=== PATIENT | male | born 1950 | race Caucasian/White ===

== ENCOUNTER 2023-04-07 13:51 | Outpatient (RCR) | payer MEDICARE, BC, SELFPAY ==
[2023-04-07 13:59] VITALS: BP 136/78
[2023-04-07] MEDS: NUCALA 1 MG SC (14:12)
== END 2023-04-08 08:30 | disposition home or self-care (01) ==
LOC: OID 13:51
PROVIDERS: ATTENDING PHYSICIAN Internal Medicine Critical Care Medicine; FAMILY PHYSICIAN Family Medicine
DX: J45.50 Severe persistent asthma, uncomplicated (principal)
CPT/HCPCS: 96372; J2182

== ENCOUNTER 2023-05-05 13:46 | Outpatient (RCR) | payer MEDICARE, BC, SELFPAY ==
[2023-05-05] MEDS: NUCALA 1 MG SC (14:13)
[2023-05-05 14:23] VITALS: BP 116/66
== END 2023-05-06 08:37 | disposition home or self-care (01) ==
LOC: OID 13:46
PROVIDERS: ATTENDING PHYSICIAN Internal Medicine Critical Care Medicine; FAMILY PHYSICIAN Family Medicine
DX: J45.40 Moderate persistent asthma, uncomplicated (principal); J44.9 Chronic obstructive pulmonary disease, unspecified; G47.33 Obstructive sleep apnea (adult) (pediatric); Z87.891 Personal history of nicotine dependence
CPT/HCPCS: 96372; J2182

== ENCOUNTER 2023-06-02 13:46 | Outpatient (RCR) | payer MEDICARE, BC, SELFPAY ==
[2023-06-02 13:58] VITALS: BP 111/81
[2023-06-02] MEDS: NUCALA 1 MG SC (14:06)
== END 2023-06-03 11:20 | disposition home or self-care (01) ==
LOC: OID 13:46
PROVIDERS: ATTENDING PHYSICIAN Internal Medicine Critical Care Medicine; FAMILY PHYSICIAN Family Medicine
DX: J45.50 Severe persistent asthma, uncomplicated (principal)
CPT/HCPCS: 96372; J2182

== ENCOUNTER → 2023-06-12 14:24 | Outpatient (REF) | payer MEDICARE, BC, SELFPAY | LOC: RAD 14:24 | PROVIDERS: ATTENDING PHYSICIAN Internal Medicine Critical Care Medicine; FAMILY PHYSICIAN Family Medicine; OTHER PHYSICIAN Surgery; REFERRING PHYSICIAN Internal Medicine Cardiovascular Disease | DX: Z87.891 Personal history of nicotine dependence (principal) | CPT/HCPCS: 71271 ==

== ENCOUNTER → 2023-06-22 12:38 | Outpatient (REF) | payer MEDICARE, BC, SELFPAY | LOC: RAD 12:38 | PROVIDERS: ATTENDING PHYSICIAN Family Medicine | DX: M54.9 Dorsalgia, unspecified (principal) | CPT/HCPCS: 72072 ==

== ENCOUNTER → 2023-06-29 07:20 | Outpatient (REF) | payer MEDICARE, BC, SELFPAY | LOC: MRI 07:20 | PROVIDERS: ATTENDING PHYSICIAN Family Medicine | DX: M54.9 Dorsalgia, unspecified (principal); C67.9 Malignant neoplasm of bladder, unspecified | CPT/HCPCS: 72146 ==

== ENCOUNTER 2023-06-30 13:34 | Outpatient (RCR) | payer MEDICARE, BC, SELFPAY ==
[2023-06-30 13:45] VITALS: BP 102/65
[2023-06-30] MEDS: NUCALA 1 MG SC (14:00)
== END 2023-07-01 09:34 | disposition home or self-care (01) ==
LOC: OID 13:34
PROVIDERS: ATTENDING PHYSICIAN Internal Medicine Critical Care Medicine; FAMILY PHYSICIAN Family Medicine
DX: J45.40 Moderate persistent asthma, uncomplicated (principal); J44.9 Chronic obstructive pulmonary disease, unspecified; G47.33 Obstructive sleep apnea (adult) (pediatric); Z87.891 Personal history of nicotine dependence
CPT/HCPCS: 96372; J2182

== ENCOUNTER → 2023-07-03 11:24 | Outpatient (REF) | payer MEDICARE, BC, SELFPAY | LOC: MRI 3T 11:24 | PROVIDERS: ATTENDING PHYSICIAN Family Medicine | DX: G95.20 Unspecified cord compression (principal) | CPT/HCPCS: 72141 ==

== ENCOUNTER 2023-07-28 13:48 | Outpatient (RCR) | payer MEDICARE, BC, SELFPAY ==
[2023-07-28 13:59] VITALS: BP 104/65
[2023-07-28] MEDS: NUCALA 1 MG SC (14:12)
== END 2023-07-29 09:06 | disposition home or self-care (01) ==
LOC: OID 13:48
PROVIDERS: ATTENDING PHYSICIAN Internal Medicine Critical Care Medicine; FAMILY PHYSICIAN Family Medicine
DX: J45.50 Severe persistent asthma, uncomplicated (principal)
CPT/HCPCS: 96372; J2182

== ENCOUNTER 2023-08-25 13:43 | Outpatient (RCR) | payer MEDICARE, BC, SELFPAY ==
[2023-08-25 13:57] VITALS: BP 106/66
[2023-08-25] MEDS: NUCALA 1 MG SC (14:16)
== END 2023-08-26 11:30 | disposition home or self-care (01) ==
LOC: OID 13:43
PROVIDERS: ATTENDING PHYSICIAN Internal Medicine Critical Care Medicine; FAMILY PHYSICIAN Family Medicine
DX: J45.40 Moderate persistent asthma, uncomplicated (principal); J44.9 Chronic obstructive pulmonary disease, unspecified; G47.33 Obstructive sleep apnea (adult) (pediatric); Z87.891 Personal history of nicotine dependence
CPT/HCPCS: 96372; J2182

== ENCOUNTER 2023-09-22 13:46 | Outpatient (RCR) | payer MEDICARE, BC, SELFPAY ==
[2023-09-22 14:07] VITALS: BP 101/49
[2023-09-22] MEDS: NUCALA 1 MG SC (14:38)
== END 2023-09-23 10:41 | disposition home or self-care (01) ==
LOC: OID 13:46
PROVIDERS: ATTENDING PHYSICIAN Internal Medicine Critical Care Medicine; FAMILY PHYSICIAN Family Medicine
DX: J45.50 Severe persistent asthma, uncomplicated (principal)
CPT/HCPCS: 96372; J2182

== ENCOUNTER 2023-10-20 13:49 | Outpatient (RCR) | payer MEDICARE, BC, SELFPAY ==
[2023-10-20 14:05] VITALS: BP 104/54
[2023-10-20] MEDS: NUCALA 1 MG SC (14:22)
== END 2023-10-21 08:17 | disposition home or self-care (01) ==
LOC: OID 13:49
PROVIDERS: ATTENDING PHYSICIAN Internal Medicine Critical Care Medicine; FAMILY PHYSICIAN Family Medicine
DX: J45.50 Severe persistent asthma, uncomplicated (principal)
CPT/HCPCS: 96372; J2182

== ENCOUNTER 2023-12-16 13:44 | Outpatient (RCR) | payer MEDICARE, BC, SELFPAY ==
[2023-11-17 13:50] VITALS: BP 97/61
[2023-11-17] MEDS: NUCALA 1 MG SC (14:05)
[2023-12-16 13:58] VITALS: BP 106/56
[2023-12-16] MEDS: NUCALA 1 MG SC (14:00)
== END 2023-12-17 09:05 | disposition home or self-care (01) ==
LOC: OID 13:44
PROVIDERS: ATTENDING PHYSICIAN Internal Medicine Critical Care Medicine; FAMILY PHYSICIAN Family Medicine
DX: J45.40 Moderate persistent asthma, uncomplicated (principal); J45.50 Severe persistent asthma, uncomplicated (principal); J44.9 Chronic obstructive pulmonary disease, unspecified; R06.89 Other abnormalities of breathing; G47.33 Obstructive sleep apnea (adult) (pediatric); Z87.891 Personal history of nicotine dependence
CPT/HCPCS: 96372; J2182

== ENCOUNTER → 2024-01-05 15:03 | Outpatient (REF) | payer MEDICARE, BC, SELFPAY | LOC: RAD 15:03 | PROVIDERS: ATTENDING PHYSICIAN Podiatrist; FAMILY PHYSICIAN Family Medicine | DX: M16.0 Bilateral primary osteoarthritis of hip (principal) | CPT/HCPCS: 73523 ==

== ENCOUNTER 2024-01-12 13:41 | Outpatient (RCR) | payer MEDICARE, BC, SELFPAY ==
[2024-01-12 13:45] VITALS: BP 125/65
[2024-01-12] MEDS: NUCALA 1 MG SC (13:59)
== END 2024-01-13 09:54 | disposition home or self-care (01) ==
LOC: OID 13:41
PROVIDERS: ATTENDING PHYSICIAN Internal Medicine Critical Care Medicine; FAMILY PHYSICIAN Family Medicine
DX: J45.50 Severe persistent asthma, uncomplicated (principal); R06.89 Other abnormalities of breathing; J44.9 Chronic obstructive pulmonary disease, unspecified; D72.19 Other eosinophilia; G47.33 Obstructive sleep apnea (adult) (pediatric); Z87.891 Personal history of nicotine dependence
CPT/HCPCS: 96372; J2182

== ENCOUNTER 2024-02-09 11:30 | Outpatient (RCR) | payer MEDICARE, BC, SELFPAY ==
[2024-02-09 11:40] VITALS: BP 111/58
[2024-02-09] MEDS: NUCALA 1 MG SC (11:52)
== END 2024-02-11 08:34 | disposition home or self-care (01) ==
LOC: OID 11:30
PROVIDERS: ATTENDING PHYSICIAN Internal Medicine Critical Care Medicine; FAMILY PHYSICIAN Family Medicine
DX: J45.50 Severe persistent asthma, uncomplicated (principal); R06.89 Other abnormalities of breathing; J44.9 Chronic obstructive pulmonary disease, unspecified; G47.33 Obstructive sleep apnea (adult) (pediatric); Z87.891 Personal history of nicotine dependence
CPT/HCPCS: 96372; J2182

== ENCOUNTER 2024-03-08 13:36 | Outpatient (RCR) | payer MEDICARE, BC, SELFPAY ==
[2024-03-08 14:12] VITALS: BP 133/59
[2024-03-08] MEDS: NUCALA 1 MG SC (14:21)
== END 2024-03-09 09:32 | disposition home or self-care (01) ==
LOC: OID 13:36
PROVIDERS: ATTENDING PHYSICIAN Internal Medicine Critical Care Medicine; FAMILY PHYSICIAN Family Medicine
DX: J45.50 Severe persistent asthma, uncomplicated (principal); R06.89 Other abnormalities of breathing; J44.9 Chronic obstructive pulmonary disease, unspecified; G47.33 Obstructive sleep apnea (adult) (pediatric); Z87.891 Personal history of nicotine dependence
CPT/HCPCS: 96372; J2182

== ENCOUNTER 2024-04-05 13:45 | Outpatient (RCR) | payer MEDICARE, BC, SELFPAY ==
[2024-04-05 13:54] VITALS: BP 124/72
[2024-04-05] MEDS: NUCALA 1 MG SC (14:04)
== END 2024-04-15 23:59 | disposition home or self-care (01) ==
LOC: OID 13:45
PROVIDERS: ATTENDING PHYSICIAN Internal Medicine Critical Care Medicine; FAMILY PHYSICIAN Family Medicine
DX: J45.50 Severe persistent asthma, uncomplicated (principal); R06.89 Other abnormalities of breathing; J44.9 Chronic obstructive pulmonary disease, unspecified; G47.33 Obstructive sleep apnea (adult) (pediatric); Z87.891 Personal history of nicotine dependence
CPT/HCPCS: 96372; J2182

== ENCOUNTER 2024-05-03 13:43 | Outpatient (RCR) | payer MEDICARE, BC, SELFPAY ==
[2024-05-03 13:52] VITALS: BP 94/47
[2024-05-03] MEDS: NUCALA 1 MG SC (14:04)
== END 2024-05-04 10:08 | disposition home or self-care (01) ==
LOC: OID 13:43
PROVIDERS: ATTENDING PHYSICIAN Internal Medicine Critical Care Medicine; FAMILY PHYSICIAN Family Medicine
DX: J45.50 Severe persistent asthma, uncomplicated (principal); R06.89 Other abnormalities of breathing; J44.9 Chronic obstructive pulmonary disease, unspecified; G47.33 Obstructive sleep apnea (adult) (pediatric); Z87.891 Personal history of nicotine dependence
CPT/HCPCS: 96372; J2182

== ENCOUNTER 2024-05-31 13:48 | Outpatient (RCR) | payer MEDICARE, BC, SELFPAY ==
[2024-05-31 13:59] VITALS: BP 104/59
[2024-05-31] MEDS: NUCALA 1 MG SC (14:15)
== END 2024-06-01 08:57 | disposition home or self-care (01) ==
LOC: OID 13:48
PROVIDERS: ATTENDING PHYSICIAN Internal Medicine Critical Care Medicine; FAMILY PHYSICIAN Family Medicine
DX: J45.50 Severe persistent asthma, uncomplicated (principal); R06.89 Other abnormalities of breathing; J44.9 Chronic obstructive pulmonary disease, unspecified; G47.33 Obstructive sleep apnea (adult) (pediatric); Z87.891 Personal history of nicotine dependence
CPT/HCPCS: 96372; J2182

== ENCOUNTER → 2024-06-23 13:40 | Outpatient (REF) | payer MEDICARE, BC, SELFPAY | LOC: RAD 13:40 | PROVIDERS: ATTENDING PHYSICIAN Surgery; FAMILY PHYSICIAN Family Medicine | DX: C67.0 Malignant neoplasm of trigone of bladder (principal) | CPT/HCPCS: 74178; Q9967 ==

== ENCOUNTER 2024-06-28 13:58 | Outpatient (RCR) | payer MEDICARE, BC, SELFPAY ==
[2024-06-28 14:06] VITALS: BP 97/65
[2024-06-28] MEDS: NUCALA 1 MG SC (14:16)
== END 2024-06-29 09:22 | disposition home or self-care (01) ==
LOC: OID 13:58
PROVIDERS: ATTENDING PHYSICIAN Internal Medicine Critical Care Medicine; FAMILY PHYSICIAN Family Medicine
DX: J45.50 Severe persistent asthma, uncomplicated (principal); R06.89 Other abnormalities of breathing; J44.9 Chronic obstructive pulmonary disease, unspecified; G47.33 Obstructive sleep apnea (adult) (pediatric); Z87.891 Personal history of nicotine dependence
CPT/HCPCS: 96372; J2182

== ENCOUNTER 2024-07-26 13:52 | Outpatient (RCR) | payer MEDICARE, BC, SELFPAY ==
[2024-07-26 14:01] VITALS: BP 105/60
[2024-07-26] MEDS: NUCALA 1 MG SC (14:21)
== END 2024-07-27 09:44 | disposition home or self-care (01) ==
LOC: OID 13:52
PROVIDERS: ATTENDING PHYSICIAN Internal Medicine Critical Care Medicine; FAMILY PHYSICIAN Family Medicine
DX: J45.50 Severe persistent asthma, uncomplicated (principal); R06.89 Other abnormalities of breathing; J44.9 Chronic obstructive pulmonary disease, unspecified; G47.33 Obstructive sleep apnea (adult) (pediatric); Z87.891 Personal history of nicotine dependence
CPT/HCPCS: 96372; J2182

== ENCOUNTER 2024-08-23 13:46 | Outpatient (RCR) | payer MEDICARE, BC, SELFPAY ==
[2024-08-23 13:55] VITALS: BP 94/61
[2024-08-23] MEDS: NUCALA 1 MG SC (14:25)
== END 2024-08-24 09:56 | disposition home or self-care (01) ==
LOC: OID 13:46
PROVIDERS: ATTENDING PHYSICIAN Internal Medicine Critical Care Medicine; FAMILY PHYSICIAN Family Medicine
DX: J45.50 Severe persistent asthma, uncomplicated (principal); R06.89 Other abnormalities of breathing; J44.9 Chronic obstructive pulmonary disease, unspecified; G47.33 Obstructive sleep apnea (adult) (pediatric); Z87.891 Personal history of nicotine dependence
CPT/HCPCS: 96372; J2182

== ENCOUNTER 2024-09-20 13:50 | Outpatient (RCR) | payer MEDICARE, BC, SELFPAY ==
[2024-09-20 13:56] VITALS: BP 108/55
[2024-09-20] MEDS: NUCALA 1 MG SC (14:14)
== END 2024-09-21 08:17 | disposition home or self-care (01) ==
LOC: OID 13:50
PROVIDERS: ATTENDING PHYSICIAN Internal Medicine Critical Care Medicine; FAMILY PHYSICIAN Family Medicine
DX: J45.50 Severe persistent asthma, uncomplicated (principal); R06.89 Other abnormalities of breathing; J44.9 Chronic obstructive pulmonary disease, unspecified; G47.33 Obstructive sleep apnea (adult) (pediatric); Z87.891 Personal history of nicotine dependence
CPT/HCPCS: 96372; J2182

== ENCOUNTER → 2024-10-03 13:37 | Outpatient (REF) | payer MEDICARE, BC, SELFPAY | LOC: RCS 13:37 | PROVIDERS: ATTENDING PHYSICIAN Internal Medicine Cardiovascular Disease; FAMILY PHYSICIAN Family Medicine | DX: I48.0 Paroxysmal atrial fibrillation (principal); I50.32 Chronic diastolic (congestive) heart failure | CPT/HCPCS: 93306 ==

== ENCOUNTER 2024-11-08 06:24 | Day surgery (SDC) | payer MEDICARE, BC, SELFPAY | END 2024-11-08 15:15 | disposition home or self-care (01) | LOC: GI 06:24 | PROVIDERS: ATTENDING PHYSICIAN Internal Medicine Gastroenterology | DX: Z12.11 Encounter for screening for malignant neoplasm of colon (principal); D12.2 Benign neoplasm of ascending colon; D12.3 Benign neoplasm of transverse colon; D12.4 Benign neoplasm of descending colon; K63.5 Polyp of colon; K57.30 Diverticulosis of large intestine without perforation or abscess without bleeding; K62.1 Rectal polyp; R19.5 Other fecal abnormalities | CPT/HCPCS: 45385; 45380; 88305 ==

== ENCOUNTER 2024-11-08 21:16 | Inpatient (IN) | payer MEDICARE, BC, SELFPAY ==
[2024-11-08] VITALS (9 sets, daily range): BP systolic 90–136; BP diastolic 52–113; BMI 39.3
--- NOTE | 2024-11-08 15:47 | ED.GENMED ---
History of Present Illness
General
Chief Complaint: Heart Rate Problem
Source: patient and other (GI nurse [place])
Exam Limitations: none
Time Seen by Provider: 11/08/24 15:31
Nursing documentation reviewed up to this point in time: agreed with
History of Present Illness
History of Present Illness:
74-year-old male with history of COPD, A-fib on Eliquis, HTN, HLD, bladder cancer (had cystoscopy 4 days ago and 'clear'), presents from GI lab for rapid HR afib which started 30 minutes after his completed procedure. He presents 'a little tired,'
denies CP, SOB, abd pain, n/v. at bedside states his last Eliquis was 11/05 and he was told to resume it on 25 p.m.
Past History
Past History
ED Past Medical History: Arrthythmia (Atrial fib), Cancer (Lymphoma, Bladder Ca), COPD, HTN, Hypercholesterolemia and Other (PNA, sleep apnea)
ED Past Surgical History: Other (right Carotid endarterectomy, Stent Right lower leg)
Social History
Tobacco: Former smoker
Alcohol: Occasional
Drug: None
Personal: Single
Living: alone
Review of Systems
Review of Systems
Allergies reviewed?: Yes
All Other Systems: ROS reviewed and negative except as documented in HPI and ROS
Respiratory: Denies trouble breathing
Cardiac: Denies chest pain
ABD/GI: Denies abdominal pain or nausea
Neurological: Denies dizzy, weakness or numbness
Phy Exam
Physical Exam
Physical Exam:
GENERAL: No acute distress. A&Ox3.
CONSTITUTIONAL: Afebrile.
EYES: clear, conjunctivae normal
ENMT: moist mucus membranes, Pharynx nl
RESPIRATORY: Regular respirations, nonlabored, lungs clear.
CARDIOVASCULAR: Irregular rate, HR 130s to 150s A-fib on bedside monitor, no murmurs, no rubs.
GI: Soft, obese, nontender, normal BS
MUSCULOSKELETAL: Moves with ease. Well perfused. No edema
SKIN: Warm, dry, pink
PSYCH: Normal mood and affect. Well kept, interactive and appropriate
NEUROLOGIC: Awake, alert and oriented. No focal neurological deficits
Course
Orders/Labs/Results
Orders:
Orders
11/08/24 15:35
Diltiazem 125 mg/125 ml Nss [Cardizem] 125 mg in 125 ml IV NOW
Initial dose in mg/hr, then titrate:: 5
Titrate to keep:: Heart rate 80-100 bpm
Titrate by mg/hr:: 5 mg/hr
Frequency of titrations (minutes):: 15
Maximum dose in mg/hr:: 15
Diltiazem HCl [Cardizem] 10 mg IV NOW STA
11/08/24 15:48
Comprehensive Metabolic Panel Urgent
Magnesium Urgent
11/08/24 15:49
Complete Blood Count/With Diff Urgent
TSH Urgent
11/08/24 16:36
ECG [Electrocardiogram (*1)] Urgent
Reason for Study: Atrial Fibrillation
EKG- Treatment ONCE
11/08/24 18:33
ECG [Electrocardiogram (*1)] Urgent
Reason for Study: Atrial Fibrillation
EKG- Treatment ONCE
11/08/24 18:53
0.9% Sodium Chloride 1000 ml [Nss] 1,000 ml IV BOLUS
Diltiazem 125 mg/125 ml Nss [Cardizem] 125 mg in 125 ml IV NOW
Initial dose in mg/hr, then titrate:: 5
Titrate to keep:: Heart rate 80-100 bpm
Titrate by mg/hr:: 5 mg/hr
Frequency of titrations (minutes):: 15
Maximum dose in mg/hr:: 15
11/08/24 21:04
Admit/Transfer Patient As Directed
Co-Sign Provider:
Level of Care: Inpatient admission
Assign to:: IMU- Intermediate Care
Physician / Group: curtis encinas
Diagnosis: afib with rvr post polypectomy
Reason for Hospitalization: afib with rvr post polypectomy
Expected length of stay greater than two midnights?: Yes
ELOS- Estimated Length of Stay in days: 3
I certify the patient meets the requirements for IP care: Yes
Code Status As Directed
Resuscitation Status: Full Code
Dofetilide [Tikosyn] 125 mcg PO ONCE ONE
11/08/24 21:09
PRN Pain Medication Management As Directed
May give lesser potent ordered pain med per pt: Yes
preference::
Protocol:: Medication orders for pain may be administered in a
manner that supports deferring to patient preference
when the pt is:
- Requesting an ordered lesser potent pain medication.
Least to most potent pain medications are defined
as: acetaminophen < NSAID < tramadol < opioids
(morphine, oxycodone, hydromorphone).
- Requesting a lesser dose of the same medication IF
ORDERED.
- Requesting a less intrusive route of administration
if both routes are prescribed by the provider (PO <
IV).
Abnormal Lab Results
11/08/24 11/08/24
15:48 15:49
Absolute Neuts (auto) 7.3 H 10^3/uL
(1.4-6.5)
Absolute Lymphs (auto) 1.0 L 10^3/uL
(1.2-3.4)
Absolute Monos (auto) 1.4 H 10^3/uL
(0.1-0.6)
Lymphocytes % 10.0 L %
(20.5-51.1)
Monocytes % 14.3 H %
(1.7-9.3)
Sodium 133 L mmol/L
(135-145)
BUN 21 H mg/dl
(-)
11/08/24 15:49
11/08/24 15:48
Vital Signs
Initial and Last Documented VS:
Initial Vital Signs
Temp Pulse Resp BP Pulse Ox
98.8 F 150 18 93/81 95
11/08/24 15:33 11/08/24 15:33 11/08/24 15:33 11/08/24 15:33 11/08/24 15:33
Last Documented Vital Signs
Temp Pulse Resp BP Pulse Ox
98.8 F 143 18 103/74 97
11/08/24 15:33 11/08/24 18:35 11/08/24 18:35 11/08/24 18:35 11/08/24 18:35
MDM/Problems Addressed
Differential Diagnosis Includes:
A-fib with RVR
MDM/Problems Addressed:
74-year-old male with history of COPD, A-fib on Eliquis, HTN, HLD, bladder cancer (had cystoscopy 4 days ago and 'clear'), presents from GI lab for rapid HR afib which started 30 minutes after his completed procedure. He presents 'a little tired,'
denies CP, SOB, abd pain, n/v. at bedside states his last Eliquis was 11/05 and he was told to resume it on 25 p.m.
3:45 p.m.
Bedside monitor showing HR 80's Repeat EKG: Afib rate 92, monitor showing frequent episodes of sinus beats.
BP soft, Will hold off on Cardizem for now
4:00 PM:
Heart rate on monitor is normal sinus rate of 95
5:15 p.m.
HR remains 92, sinus. EKG: Sinus rhythm w PACs.
Pt feeling well
OOB and ambulated to BR and back independently
Consulted cardiology Dr. Martínez who states starting Eliquis is up to GI
Consulted GI Dr. Vieira about restarting the Eliquis, she is contacting Dr. Chapman and will get back to me.
6:30 PM:
Patient has been resting in normal sinus and just suddenly developed an increased heart rate with A-fib RVR of 140s to 150s.
Plan: IVFs, Cardizem drip, no bolus as BP is still soft.
Admit
Haven't heard back from GI
7:10 p.m.
Hospitalist notified of admission
GI did get back finally and notified of admission.
*Pulse Oximetry
SaO2: 95
Oxygen Mode of Delivery: Room air
Patient hypoxic: no
*Critical Care Note
Total Time (30-74mins, 75-104mins- exclusive of procedures): Not Applicable
ED Attending Note
-
Portions of this chart may have been created with voice recognition software.� Occasional wrong word or��sound alike� substitutions may have occurred due to the inherent limitations of voice recognition software.
Discharge Plan
Departure
Patient Disposition: Admit
Date of Disposition: 11/08/24
Time of Disposition: 19:05
Admit to: Telemetry
Presentation/result/management discussed w/ accepting MD/DO: Hospitalist
Condition: Fair
Discharge Problem:
Atrial fibrillation with rapid ventricular response
Interventions
Interventions:
*Risk Screen - Suicide Last Done: 11/08/24 15:33
*General Assessment Last Done: 11/08/24 15:33
*Neglect/Abuse Screening Last Done: 11/08/24 15:33
*ED- Fall Risk Assessment Last Done: 11/08/24 15:33
ED- Cardiac Assessment Last Done: 11/08/24 15:33
ED- Pulmonary Assessment Last Done: 11/08/24 15:33
[2024-11-08 16:07] LABS: Hematocrit 49.5 % (39.0-52.0); Hemoglobin 16.7 g/dL (13.0-18.0); Mean Corp Hgb Conc. 33.7 g/dL (33.0-37.0); Mean Corpuscular Volume 91.5 fL (80.0-94.0); Nucleated Red Blood Cells % 0 % (-); Platelet Count 221 10^3/uL (130-400); Red Cell Dist. Width 13.6 % (11.5-14.5)
[2024-11-08 16:22] LABS: ALT (SGPT) 22 U/L (0-50); AST (SGOT) 28 U/L (17-59); Albumin 3.9 g/dl (3.5-5.0); Alkaline Phosphatase 51 U/L (38-126); Blood Urea Nitrogen 21 mg/dl (9-20); Calcium 8.4 mg/dl (8.4-10.2); Carbon Dioxide 26 mmol/L (22-30); Chloride 100 mmol/L (98-107); Estimated Creatinine Clearance 62 ml/min; Glucose 92 mg/dl (70-99); Magnesium 2.1 mg/dl (1.6-2.3); Potassium 3.7 mmol/L (3.5-5.1); Sodium 133 mmol/L (135-145); Total Protein 6.3 g/dl (6.3-8.2); eGFR > 60.00
[2024-11-08] MEDS: NSS 1000 IV ×2 (19:00→23:55)
[2024-11-08] MEDS: CARDIZEM 125 IV (19:02)
--- NOTE | 2024-11-08 20:27 | HPS.HSE ---
Addendum entered and electronically signed by Bebo Nelson DO 11/08/24 21:30:
Patient seen and examined independently. Agree with findings and plan as set forth by MAX Curtis.
Patient is a 74y M with PMH significant for paroxysmal atrial fibrillation, ASCVD and COPD who presents to ED for evaluation of tachycardia. Patient presented for colonoscopy today. He had 14 polyps removed during that procedure.
Post-procedure patient was noted to be in rapid A-Fib and was sent to the ED for further evaluation.
In the ED, patient is on IV Cardizem with persistent tachycardia. He denies any chest pain or palpitations. He denies SOB, fevers / chills, etc.
He had a BM here in the ED with some BRB.
Ass:
Paroxysmal Atrial Fibrillation with Rapid Ventricular Response
ASCVD
Colonoscopy / Polypectomy
Post-polypectomy Bleeding
Benign Hypertension
Chronic HFpEF
COPD
BPH
Plan:
Admit for further evaluation and treatment.
Continue Tikosyn including PM dose now.
IV Cardizem and titrate as needed for rate control.
Remain off of anticoagulation for now s/p multiple polypectomies and some (expected) post-polypectomy bleeding in the ED.
Cardiology evaluation for additional recommendations.
Follow for further bleeding. Follow H&H for changes.
Continue usual inhaled medications.
Original Note:
Family Physician
-
Family Physician: Lola Caceres
Chief Complaint
-
A-fib post polypectomy
History of Present Illness
74-year-old male status post colonoscopy today with resection of polyp in the sigmoid, descending colon, transverse colon, ascending colon, cecum, rectum who developed rapid A-fib with RVR patient denies headache, fever, chills, sore throat, chest
pain, palpitations, cough, shortness breath, abdominal pain, nausea, vomiting, urinary symptoms. He has past medical history of A-fib, HTN, HLD, CHF, carotid stenosis status post right CEA 2013, lymphoma right lower extremity, stent right lower
extremity, COPD, former smoker, sleep apnea not tolerant with CPAP, bladder CA, spinal stenosis, arthritis unknown type, [place].
Medical History
Past Medical History
Past Medical History: Reports Other
Additional Past Medical History:
A-fib
HTN
HLD
carotid stenosis status post right CEA 2013
lymphoma right lower extremity,
COPD
former smoker
sleep apnea not tolerant with CPAP
bladder CA
spinal stenosi
arthritis unknown type
[place].
Past Surgical History: Reports Other
Additional Past Surgical History:
stent right lower extremity
carotid stenosis status post right CEA 2013
Social History
Tobacco: Former Smoker
Alcohol: None
Drug: None
Personal:
Employment: Retired
Family History
Family History: Not pertinent
Allergies / Home Medications
Allergies reflects when Allergies were last updated in [facility].
Home Medications with original date entered in [facility]
Allergy/Medication List:
Allergies
Allergy/AdvReac Type Severity Reaction Status Date / Time
cucumber Allergy Swelling Verified 11/08/24 15:55
pollen extracts Allergy hayfever Verified 11/08/24 15:55
Home Medications
umeclidinium 62.5 mcg/actuation blister powder for inhalation (Incruse Ellipta) 1 puff inhalation R DAILY Lung/breathing issues 08/20/20
apixaban 5 mg tablet (Eliquis) 5 mg PO BID 30 days #60 tabs 08/25/20
Held on 06/13/22. Instructions: Resume on 06/20/22. hold until further notice
furosemide 40 mg tablet 40 mg PO DAILY 30 days #30 tabs 08/25/20
empagliflozin 10 mg tablet (Jardiance) 10 mg PO DAILY 10/29/21
sacubitril 24 mg-valsartan 26 mg tablet (Entresto) 1 tab PO BID 02/05/22
dofetilide 125 mcg capsule 125 mcg PO Q12 Arrhythmia #60 caps 02/06/22
diltiazem HCl 120 mg capsule,extended release 24 hr 120 mg PO DAILY Arrhythmia 03/31/22
rosuvastatin 10 mg tablet 10 mg PO DAILY 05/26/22
fluticasone furoate 200 mcg-vilanterol 25 mcg/dose inhalation powder (Breo Ellipta) 1 inh inhalation Q24H 06/06/22
tamsulosin 0.4 mg capsule 0.4 mg PO HS 06/06/22
Review of Systems
-
History Source: Patient
A 12 point ROS was completed and negative except as noted: Yes
Constitutional: Denies Fever or Chills
EENT: Denies Tearing or Runny Nose
Respiratory: Denies Cough or Trouble Breathing
Cardiac: Denies Chest Pain, Diaphoresis, Palpitations or Syncope
Abdomen/GI: Denies Abdominal Pain, Nausea, Vomiting, Diarrhea, Constipated, Bloody Stools or Black Stools
: Denies Dysuria, Frequency, Flank Pain, Incontinence or Difficulty Voiding
Musculoskeletal: Denies Joint Pain or Edema
Skin: Denies Itching or Rash
Neurological: Denies Dizzy, Headache or Weakness
Endocrine: Reports No Symptoms
Hematologic/Lymphatic: Reports No Symptoms
Psych: Reports Calm
Physical Exam
Vital Signs
Vital Signs
Temp Pulse Resp BP Pulse Ox
98.8 F 143 18 103/74 97
11/08/24 15:33 11/08/24 18:35 11/08/24 18:35 11/08/24 18:35 11/08/24 18:35
Physical Exam
General: Comfortable and Conversant; No Pain, Fever or Chills
HEENT: NormoCephalic, Anicteric, PERRLA, [place] Conjunctivae and No Ptosis
Respiratory: Clear; No Wheezes, Rales or Rhonchi
Cardiac: S1/S2 and Irregular Rhythm (A-fib with RVR 136 bpm); No Murmur, Rub, Gallop or Peripheral Edema
Breast: Deferred by me
GI: Soft, Non Tender, Non Distended, Normal Bowel Sounds and No Hepatosplenomegaly
Rectal: Deferred by Provider
Genito-urinary: Deferred by me
Musculoskeletal: No Clubbing, No Cyanosis and No Edema
Skin: Warm and Dry; No Rash
Neuro: AO x 3, No Motor Deficits, Nonfocal/grossly intact, Cranial Nerves Intact and No Sensory Deficits; No Slurred Speech, Facial Droop, Tremors or Sedated
Psych: Calm
Laboratory Results
-
11/08/24 15:49
11/08/24 15:48
Laboratory Results
Total Bilirubin 1.3 mg/dl (0.2-1.3) 11/08/24 15:48
AST 28 U/L (17-59) 11/08/24 15:48
ALT 22 U/L (0-50) 11/08/24 15:48
Alkaline Phosphatase 51 U/L (38-126) 11/08/24 15:48
Data Reviewed
-
Lab Data: Labs Reviewed by me
Impression/Plan
-
Impression/plan:
Admit to IMU
#A-fib with RVR/A-fib
- Heart rate 143
- IV Cardizem drip
Patient may restart Eliquis on 11/11/2024 per GI note
- IV NSS 80 cc an hour
-Consult [facility] cardiology
-Will give patient's Tikosyn 125 mcg p.o. now then take as an 125 mcg twice daily for home meds
EKG in a.m.
2D echo 10/03/2024: EF 55 to 60%, normal LVS LVSF, no wall abnormalities, RVS RV SF within normal limits, no valvular disease
#Status post colonoscopy today 11/08/2024 with multiple polypectomies of the sigmoid, descending, transverse, ascending, cecum, rectum
Hold Eliquis x 2 days will hold IV heparin patient with some postop bleeding
Will monitor CBC in a.m.
#HTN
BP 103/74
Patient on IV diltiazem
#Chronic diastolic CHF compensated
Hold Entresto, Lasix
2D echo 10/03/2024: EF 55 to 60%, normal LVS LVSF, no wall abnormalities, RVS RV SF within normal limits, no valvular disease
#HLD
- Continue Crestor 10 mg daily
#Carotid stenosis status post right CEA 2013
#Lymphoma right lower extremity
Stent right lower extremity
#COPD
#Former smoker
- Continue Incruse Ellipta, Breo Ellipta
#Sleep apnea not tolerant with CPAP
#BPH
Hold Flomax 0.4 mg at bedtime due to hypotension
Other PMH:
Bladder CA
Spinal stenosis
Arthritis unknown type
[place]
DVT prophylaxis
SCDs as Eliquis is currently on hold
Full code
[2024-11-08 21:25] LABS: TSH 0.94 uIU/ml (0.47-4.68)
[2024-11-08] MEDS: TIKOSYN 125 MCG PO (22:00)
[2024-11-09] VITALS (15 sets, daily range): BP systolic 88–131; BP diastolic 59–87; BMI 39.0; BMI 38.9
--- NOTE | 2024-11-09 00:58 | PTCARENOTE ---
received patient from ED. Patient AAOx3. On RA, SPo2 94%. HR in 120s, Cardizem gtt infusing at 10. Patient's bp soft. assessment and vital signs as charted. call fofana in reach.
--- NOTE | 2024-11-09 07:40 | CON.CAR ---
Addendum entered and electronically signed by Abiel Hinson DO 11/09/24 17:50:
I saw and examined the patient 11/09/2024 at 08:30
[employer]'s note was reviewed and I agree with the note.
Comment:
Plan:
Currently in sinus
Cont Cardizem and Tikosyn
Resume anticoagulation once ok with GI
Recent echo with preserved EF
Cont current regimen for GDMT
Compensated cv status
Original Note:
Consultation
Consultation Request
Date/Time Consultation Requested: 11/08/24 at 2259
Date/Time Consultation Performed: 11/09/24 at 0748
Requesting Provider: Dr. Timmons
Performing Provider: Dr. Hinson
Reason for Consultation: Afib with RVR
Medical History
-
History of Present Illness:
Patient came to the hospital with rapid A-fib after colonoscopy yesterday and cardiology is now consulted. Patient previously completed Cologuard screenings, but had his first ever colonoscopy yesterday and was found to have 14 polyps that were
resected. Telemetry strip prior to colonoscopy reviewed by me and patient appeared to be in SR and postprocedure was in A-fib with RVR. Patient denies palpitations and is generally asymptomatic with his A-fib. Patient was sent to the ER and was
in and out of A-fib with RVR, but asymptomatic throughout. Patient was admitted and started on Cardizem drip when he had an episode of A-fib that was more persistent than the 150s. Patient denies chest pain or SOB. He denies palpitations or
lightheadedness. He remembers that he forgot to take his morning doses of Tikosyn and Eliquis this past Thursday.
PMH:
Paroxysmal A-fib/tach
s/p colonoscopy with polypectomy x 14 on 11/08/2024
Chronic Eliquis OAC, last dose 11/05/24
GI cleared patient to resume Eliquis on 11/10/2024
Chronic Tikosyn therapy since 01/2022
Chronic HFpEF
COPD/asthma on Nucala
Right CEA, 2013, [facility]
History of tobacco use
Former severe ETOH use disorder, sober since 2013
Obstructive sleep apnea with CPAP noncompliance
Hypertension
Hypercholesterolemia
Obesity
s/p TURBT for bladder CA 06/12/22
Past Medical History
Past Medical History: Other (in HPI)
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
Social History
Tobacco: Former Smoker
Alcohol: None
Drug: None
Personal: Single
Living: Alone
Family History
Family History: Cancer (father with leukemia)
Allergies / Home Medications
Allergy/AdvReac Type Severity Reaction Status Date / Time
cucumber Allergy Swelling Verified 11/08/24 15:55
pollen extracts Allergy hayfever Verified 11/08/24 15:55
�Medication �Instructions �Recorded �Confirmed �Type
umeclidinium 62.5 mcg/actuation 1 puff inhalation R DAILY 08/20/20 11/08/24 History
blister powder for inhalation Lung/breathing issues
(Incruse Ellipta)
apixaban 5 mg tablet (Eliquis) 5 mg PO BID 30 days #60 tabs 08/25/20 11/08/24 Rx
Held on 06/13/22.
Instructions: Resume on
06/20/22. hold until further
notice
furosemide 40 mg tablet 40 mg PO DAILY 30 days #30 tabs 08/25/20 11/08/24 Rx
empagliflozin 10 mg tablet 10 mg PO DAILY 10/29/21 11/08/24 History
(Jardiance)
sacubitril 24 mg-valsartan 26 mg 1 tab PO BID 02/05/22 11/08/24 History
tablet (Entresto)
dofetilide 125 mcg capsule 125 mcg PO Q12 Arrhythmia #60 caps 02/06/22 11/08/24 Rx
diltiazem HCl 120 mg 120 mg PO DAILY Arrhythmia 03/31/22 11/08/24 History
capsule,extended release 24 hr
rosuvastatin 10 mg tablet 10 mg PO DAILY 05/26/22 11/08/24 History
fluticasone furoate 200 1 inh inhalation Q24H 06/06/22 11/08/24 History
mcg-vilanterol 25 mcg/dose
inhalation powder (Breo Ellipta)
tamsulosin 0.4 mg capsule 0.4 mg PO HS 06/06/22 11/08/24 History
Review of Systems
-
History Source: Patient
All other systems: Negative unless noted
Physical Exam
Vital Signs
Temp Pulse Resp BP Pulse Ox
97.5 F 93 21 131/87 95
11/09/24 03:23 11/09/24 05:00 11/09/24 05:00 11/09/24 04:00 11/09/24 00:44
GEN: NAD. AAO x3
HEENT: EOMI, MMM
LUNGS: RA. CTA B/L, no wheeze
CV: SR on tele initially then Afib with RVR and then back to SR all during consult in room. Reg, S1/S2, no murmur
ABD: soft, BS+, NT, ND
EXT: No cyanosis, clubbing. Trace edema of B/L LE
NEURO: Gross non-focal
SKIN: Warm, pink, dry. No rash
Lab Results
Labs pending for 11/09/2024, the labs from 11/08/2024 reviewed by me and are listed as follows:
CBC 11/08/2024 Hgb 16.7 WBC 9.8, platelet count 221,000
CMP 11/08/2024: Sodium 133, potassium 3.7, BUN 21, creatinine 1.2
Impression / Plan
-
PCP: Dr. Sagastume
Cardiology: Dr. Johnson
Impression:
Admitted with A-fib with RVR following colonoscopy 11/08/2024
Paroxysmal A-fib/tach with RVR
s/p colonoscopy with polypectomy x 14 on 11/08/2024
Chronic Eliquis OAC, last dose 11/05/24
GI cleared patient to resume Eliquis on 11/10/2024
Chronic Tikosyn therapy since 01/2022
Chronic HFpEF
COPD/asthma on Nucala
Right CEA, 2013, [facility]
History of tobacco use
Former severe ETOH use disorder, sober since 2013
Obstructive sleep apnea with CPAP noncompliance
Hypertension
Hypercholesterolemia
Obesity
s/p TURBT for bladder CA 06/12/22
Echo 08/21/20: EF 50%, normal RV size and function
Echo 09/11/21: EF 50-55%, mild LVH, mildly dilated aortic root 4.2 cm at the sinuses of Valsalva; 3.8 cm at the sinotubular junction and 4.1 cm in the ascending aorta. The aortic arch is normal in caliber.�
Echo 10/03/2024: EF 55 to 60%, no significant valve disease, normal RV size and function
Plan:
-Patient came to the hospital with rapid A-fib after colonoscopy yesterday and cardiology is now consulted. Patient previously completed Cologuard screenings, but had his first ever colonoscopy yesterday and was found to have 14 polyps that were
resected. Telemetry strip prior to colonoscopy reviewed by me and patient appeared to be in SR and postprocedure was in A-fib with RVR. Patient denies palpitations and is generally asymptomatic with his A-fib. Patient was sent to the ER and was
in and out of A-fib with RVR, but asymptomatic throughout. Patient was admitted and started on Cardizem drip when he had an episode of A-fib that was more persistent than the 150s. Patient denies chest pain or SOB. He denies palpitations or
lightheadedness. He remembers that he forgot to take his morning doses of Tikosyn and Eliquis this past Thursday.
-ECG x 2 reviewed by me, initial ECG in the ER is A-fib with RVR and ECG later is SR with PACs. Telemetry reviewed by me was SR when I entered the patient's room and then he went into A-fib with RVR and in less than 15 seconds was back in SR.
-Patient with paroxysmal A-fib, he is asymptomatic and paroxysms of A-fib are brief and generally less than 1 minute.
-Outpatient dose of Eliquis 5 mg BID (age 74, Cre 1.2) has been on hold since 11/05/2024, but GI has cleared the patient to resume on 11/10/2024 following 14 polypectomies on 11/08/2024.
-QTc 469 ms NSR as reviewed by me
-Outpatient dose of Tikosyn 125 mcg every 12 hours has been continued and the patient should continue this at home as well
-Cardizem gtt started and stopped this admission. Outpatient dose of Cardizem CD 120 mg daily ordered by me 11/09/2024 and should be continued upon discharge to home
-Await labs from 11/09/2024, potassium was 3.7 on 11/08/2024, the patient is not eating and drinking normally. Recommend potassium greater than 4.0.
-Echo from 10/03/2024 is reviewed and summarized above by me. EF was 55 to 60%.
-Patient with chronic HFpEF and does not appear to be volume overloaded at this time. He should continue with his usual dose of Lasix 40 mg daily.
-Outpatient dose of Entresto 24/26 mg BID should also be continued
-Outpatient dose of Jardiance 10 mg daily was changed to Farxiga for formulary reasons, but Jardiance should be resumed upon discharge to home
-Will arrange for cardiology follow-up
[2024-11-09] MEDS: SYMBICORT 160/4.5 MCG INHALER 2 PUFF INH (07:55)
[2024-11-09] MEDS: SPIRIVA RESPIMAT 2.5 MCG 2 PUFF INH (07:55)
--- NOTE | 2024-11-09 08:00 | PTCARENOTE ---
received patient at change shift from previous RN. Pt resting comfortably in bed AAOX3. denies pain. SR on telemetry heart rate in 80s. pulses palpable. trace lower extremity edema. pt on room air, lung sounds diminished. active bowel sounds, ate
100% on breakfast. voiding in urinal. pt updated on plan of care, see worklist for full nursing assessment and interventions.
[2024-11-09] MEDS: FARXIGA 10 MG PO (08:15)
[2024-11-09] MEDS: TIKOSYN 125 MCG PO (08:16)
[2024-11-09] MEDS: CRESTOR 10 MG PO (08:16)
[2024-11-09 09:25] LABS: Hematocrit 46.7 % (39.0-52.0); Hemoglobin 15.7 g/dL (13.0-18.0); Mean Corp Hgb Conc. 33.6 g/dL (33.0-37.0); Mean Corpuscular Volume 89.8 fL (80.0-94.0); Nucleated Red Blood Cells % 0 % (-); Platelet Count 198 10^3/uL (130-400); Red Cell Dist. Width 13.7 % (11.5-14.5)
[2024-11-09 10:17] LABS: ALT (SGPT) 19 U/L (0-50); AST (SGOT) 23 U/L (17-59); Albumin 3.7 g/dl (3.5-5.0); Alkaline Phosphatase 50 U/L (38-126); Blood Urea Nitrogen 17 mg/dl (9-20); Calcium 8.4 mg/dl (8.4-10.2); Carbon Dioxide 24 mmol/L (22-30); Chloride 105 mmol/L (98-107); Estimated Creatinine Clearance 82 ml/min; Glucose 127 mg/dl (70-99); HDL Cholesterol 40 mg/dl; LDL Cholesterol, Calculated 47 mg/dl; Potassium 3.8 mmol/L (3.5-5.1); Sodium 134 mmol/L (135-145); Total Protein 5.9 g/dl (6.3-8.2); Very Low Density Lipoprotein 19 mg/dl (0-30); eGFR > 60.00
[2024-11-09] MEDS: CARDIZEM CD 120 MG PO (10:30)
--- NOTE | 2024-11-09 10:52 | CM ---
Initial Assessment Completed By VALERI Garnica
Patient lives independently in a 1 Story rancher occasionally using a cane. Patient has a CPAP at home, cannot recall the company name. Patient had a colonoscopy and then had irregular heart rate that has improved.
PCP: Dr. Salvatore Caceres
Pharmacy: [facility] in [facility]
Patient has his sister to pick him up.
PLAN: Home No Needs
--- NOTE | 2024-11-09 13:38 | W.PN.HOSP.TC ---
Today's Communication/Plan
-
dc today if ok with Cardiology
Assessment / Plan
Assessment / Plan
Assessment:
Parox A. Fib with RVR
Chronic Eliquis OAC
- s/p Cardizem drip
- continue oral Cardizem/Tikosyn
- resume Eliquis 11/10/24 per GI
Chronic HFpEF
- continue Jardiance/Entresto/Lasix
COPD/asthma on Nucala
- continue inhalers
Right CEA, 2013, [facility]
History of tobacco use
Former severe ETOH use disorder, sober since 2013
Obstructive sleep apnea with CPAP noncompliance
Essential Hypertension
Hypercholesterolemia - statin
Obesity
s/p TURBT for bladder CA 06/12/22 - on Flomax
DVT ppx: SCDs
Code: Full
More than 30 minutes spent in discharge including
Final examination of the patient
Summarizing hospital stay
Instructions for continuing care to all relevant caregivers
Preparation of discharge records, prescriptions, and referral forms
Total time spent (in minutes): 41
Anticipated Discharge: Today
Subjective/Interval History
-
Date of Service: November 09, 2024
back in NSR
denies any cp or sob
Objective Data
-
Labs:
Laboratory Results
11/09/24
08:25
WBC 13.2 H
Hgb 15.7
Hct 46.7
Plt Count 198
Sodium 134 L
Potassium 3.8
Chloride 105
Carbon Dioxide 24
BUN 17
Creatinine 0.9
Glucose 127 H
Calcium 8.4
Total Bilirubin 1.8 H
AST 23
ALT 19
Alkaline Phosphatase 50
Vital Signs:
Vital Signs
Temp Pulse Resp BP Pulse Ox
97.9 F 91 24 104/73 97
11/09/24 13:32 11/09/24 10:30 11/09/24 10:00 11/09/24 10:30 11/09/24 08:00
I&O
11/08/24 11/09/24 11/10/24
06:59 06:59 06:59
Intake Total 480 / 480
Output Total 750 / 750 250 / 250
Balance -750 / -750 230 / 230
Physical Exam
-
General: No Apparent Distress
HEENT: Normocephalic and Atraumatic
Respiratory: Negative Wheezes
Cardiac: Regular Rhythm and S1/S2
GI: Soft
Genito-urinary: No Costovertebral Tender
Neuro: AO x 3
Hematologic / Lymphatic: No Lymphadenopathy
Psych: Calm
Data Reviewed
-
Total Time Spent with Patient (in minutes): 41
Labs: Labs Reviewed by me
--- NOTE | 2024-11-09 13:51 | W.DCSUMMARY ---
Discharge Summary
Discharge Data
Date of Admission: 11/08/24
Date of Discharge: 11/09/24
-
Pending Results: No
Hospital Course
74 y/o M presented to ER on 11/08 with rapid A. Fib seen on monitor post-colonoscopy. During that colonoscopy, he underwent 14 polypectomies. He was referred to ER. He was asymptomatic but HRs in 150s. He was started on Cardizem drip and admitted.
The next morning, he was back in NSR and laced back on his outpatient Cardizem 120mg daily dosing along with home dosing of Tikosyn. His Eliquis was planned to be held for 48 hours post procedure and will be resumed 11/10 with the morning dose. He
will follow up with Cardiology office.
Discharge Plan
-
Patient Disposition: Home (Routine Discharge)
Discharge Diagnosis/Procedures: Paroxysmal A. fib
Condition: Fair
Diet: Low Cholesterol
Activity: As tolerated
Bathing Restrictions: None
Referrals:
Lola Caceres MD [Family Provider, [facility]] - in one week
Prescriptions:
Continued
Incruse Ellipta 62.5 MCG blister with device
1 puff inhalation R DAILY
rosuvastatin 10 mg Tablet
10 mg PO DAILY
fluticasone furoate-vilanterol [Breo Ellipta] 200-25 mcg/dose Blister With Device
1 inh INHALATION Q24H
tamsulosin 0.4 mg Capsule
0.4 mg PO HS
furosemide 40 MG tablet
40 mg PO DAILY 30 Days Qty: 30 0RF
dofetilide 125 mcg Capsule
125 mcg PO Q12 Qty: 60 0RF
diltiazem HCl 120 mg capsule,extended release 24hr
120 mg PO DAILY Qty: 30 0RF
Jardiance 10 mg Tablet
10 mg PO DAILY Qty: 30 0RF
sacubitril-valsartan [Entresto] 24-26 mg Tablet
1 tab PO BID Qty: 60 0RF
Eliquis 5 MG tablet
5 mg PO BID 30 Days Qty: 60 0RF
Rx Instructions:
resume 9/ AM
Discharge Orders:
Discharge Patient (As Directed); Ordered 11/09/24
Ordered By: Patt Timmons
Discharge Date and Time
Print Language: UPPER SORBIAN
[2024-11-09] MEDS: KCL 40 MEQ PO (14:12)
[2024-11-10 15:10] LABS: Lyme Antibody Screen, EIA Negative (Negative)
[2024-11-10 20:05] LABS: Hepatitis C Antibody Negative (Negative)
== END 2024-11-09 15:50 | disposition home or self-care (01) | DRG 309 ==
LOC: IMU 21:16
PROVIDERS: Clinical Nurse Specialist Family Health; Registered Nurse; ADMITTING PHYSICIAN Hospitalist; ATTENDING PHYSICIAN Internal Medicine; EMERGENCY PHYSICIAN Emergency Medicine; FAMILY PHYSICIAN Family Medicine; OTHER PHYSICIAN Nuclear Medicine Nuclear Cardiology
DX: I48.0 Paroxysmal atrial fibrillation (principal); C85.90 Non-Hodgkin lymphoma, unspecified, unspecified site; I50.32 Chronic diastolic (congestive) heart failure; I11.0 Hypertensive heart disease with heart failure; N40.0 Benign prostatic hyperplasia without lower urinary tract symptoms; Z87.891 Personal history of nicotine dependence; Z85.51 Personal history of malignant neoplasm of bladder; G47.33 Obstructive sleep apnea (adult) (pediatric); Z86.0100 Personal history of colon polyps, unspecified; M48.00 Spinal stenosis, site unspecified; Z79.01 Long term (current) use of anticoagulants; Z79.899 Other long term (current) drug therapy; Z79.84 Long term (current) use of oral hypoglycemic drugs; Z80.6 Family history of leukemia; J44.9 Chronic obstructive pulmonary disease, unspecified; E66.9 Obesity, unspecified; Z68.38 Body mass index [BMI] 38.0-38.9, adult; E78.00 Pure hypercholesterolemia, unspecified; I25.10 Atherosclerotic heart disease of native coronary artery without angina pectoris; Z91.199 Patient's noncompliance with other medical treatment and regimen due to unspecified reason
CPT/HCPCS: 80053; 80061; 83735; 84443; 85025; 86618; 86803; 88305; 93005; 94640; 96365; 99284

== ENCOUNTER 2024-11-15 13:49 | Outpatient (RCR) | payer MEDICARE, BC, SELFPAY ==
[2024-10-18 13:50] VITALS: BP 107/72
[2024-10-18] MEDS: NUCALA 1 MG SC (14:18)
[2024-11-15 13:50] VITALS: BP 91/63
[2024-11-15] MEDS: NUCALA 1 MG SC (14:12)
== END 2024-11-15 23:59 | disposition home or self-care (01) ==
LOC: OID 13:49
PROVIDERS: ATTENDING PHYSICIAN Internal Medicine Critical Care Medicine; FAMILY PHYSICIAN Family Medicine
DX: J45.40 Moderate persistent asthma, uncomplicated (principal); J45.50 Severe persistent asthma, uncomplicated (principal); R06.89 Other abnormalities of breathing; J44.9 Chronic obstructive pulmonary disease, unspecified; G47.33 Obstructive sleep apnea (adult) (pediatric); Z87.891 Personal history of nicotine dependence
CPT/HCPCS: 96372; J2182

== ENCOUNTER 2024-12-13 13:52 | Outpatient (RCR) | payer MEDICARE, BC, SELFPAY ==
[2024-12-13 13:55] VITALS: BP 122/64
[2024-12-13] MEDS: NUCALA 1 MG SC (14:13)
== END 2024-12-16 23:59 | disposition home or self-care (01) ==
LOC: OID 13:52
PROVIDERS: ATTENDING PHYSICIAN Internal Medicine Critical Care Medicine; FAMILY PHYSICIAN Family Medicine
DX: J45.50 Severe persistent asthma, uncomplicated (principal); R06.89 Other abnormalities of breathing; J44.9 Chronic obstructive pulmonary disease, unspecified; G47.33 Obstructive sleep apnea (adult) (pediatric); Z87.891 Personal history of nicotine dependence
CPT/HCPCS: 96372; J2182

== ENCOUNTER → 2024-12-15 15:13 | Outpatient (REF) | payer MEDICARE, BC, SELFPAY | LOC: RAD 15:13 | PROVIDERS: ATTENDING PHYSICIAN Podiatrist; FAMILY PHYSICIAN Family Medicine | DX: M17.0 Bilateral primary osteoarthritis of knee (principal); M19.071 Primary osteoarthritis, right ankle and foot; M19.072 Primary osteoarthritis, left ankle and foot | CPT/HCPCS: 73560; 73610 ==

== ENCOUNTER 2025-01-10 13:46 | Outpatient (RCR) | payer MEDICARE, BC, SELFPAY ==
[2025-01-10 13:50] VITALS: BP 133/67
[2025-01-10] MEDS: NUCALA 1 MG SC (14:21)
== END 2025-01-11 08:41 | disposition home or self-care (01) ==
LOC: OID 13:46
PROVIDERS: ATTENDING PHYSICIAN Internal Medicine Critical Care Medicine; FAMILY PHYSICIAN Family Medicine
DX: J45.50 Severe persistent asthma, uncomplicated (principal); D72.10 Eosinophilia, unspecified; R06.89 Other abnormalities of breathing; J44.9 Chronic obstructive pulmonary disease, unspecified; G47.33 Obstructive sleep apnea (adult) (pediatric); Z87.891 Personal history of nicotine dependence
CPT/HCPCS: 96372; J2182

== ENCOUNTER → 2025-01-26 10:45 | Outpatient (REF) | payer MEDICARE, BC, SELFPAY | LOC: RAD 10:45 | PROVIDERS: ATTENDING PHYSICIAN Podiatrist; FAMILY PHYSICIAN Family Medicine; OTHER PHYSICIAN Surgery Vascular Surgery; REFERRING PHYSICIAN Internal Medicine Cardiovascular Disease | DX: I82.403 Acute embolism and thrombosis of unspecified deep veins of lower extremity, bilateral (principal); I87.2 Venous insufficiency (chronic) (peripheral); I73.9 Peripheral vascular disease, unspecified | CPT/HCPCS: 93922; 93925; 93970 ==

== ENCOUNTER 2025-02-07 13:46 | Outpatient (RCR) | payer MEDICARE, BC, SELFPAY ==
[2025-02-07 13:59] VITALS: BP 131/78
[2025-02-07] MEDS: NUCALA 1 MG SC (14:25)
== END 2025-02-08 08:51 | disposition home or self-care (01) ==
LOC: OID 13:46
PROVIDERS: ATTENDING PHYSICIAN Internal Medicine Critical Care Medicine; FAMILY PHYSICIAN Family Medicine
DX: J45.50 Severe persistent asthma, uncomplicated (principal); R06.89 Other abnormalities of breathing; J44.9 Chronic obstructive pulmonary disease, unspecified; G47.33 Obstructive sleep apnea (adult) (pediatric); Z87.891 Personal history of nicotine dependence; J45.40 Moderate persistent asthma, uncomplicated
CPT/HCPCS: 96372; J2182

== ENCOUNTER → 2025-02-10 12:03 | Outpatient (REF) | payer MEDICARE, BC, SELFPAY | LOC: RAD 12:03 | PROVIDERS: ATTENDING PHYSICIAN Internal Medicine Cardiovascular Disease; FAMILY PHYSICIAN Family Medicine | DX: I73.9 Peripheral vascular disease, unspecified (principal) | CPT/HCPCS: 75635; Q9967 ==